=== PATIENT | female | born 1985 | race Caucasian/White ===

== ENCOUNTER 2020-11-09 00:56 | Emergency (ER) | payer BC ==
[2020-11-09] MEDS ORDERED: LIDOCAINE VISCOUS 2% 15 ML UDC MM STA (02:07)
[2020-11-09] MEDS ORDERED: MAG HYDROX/AL HYDROX/SIMETH 30 ML UDC PO STA (02:07)
[2020-11-09] MEDS ORDERED: MORPHINE 2 MG/ML CARPUJECT IVP STA ×2 (02:31→03:43)
[2020-11-09 02:40] LABS: ALBUMIN 4.4 g/dL (3.2-5.5); ALBUMIN/GLOBULIN RATIO 1.5 (1.0-2.2); BILIRUBIN,TOTAL 0.7 mg/dL (0.2-1.0); CALCIUM 9.1 mg/dL (8.5-10.3); CREATININE 0.7 mg/dL (0.4-1.0); TOTAL PROTEIN 7.3 g/dL (6.7-8.2)
[2020-11-09 02:42] LABS: BASOPHILS # (AUTO) 0.1 10^3/uL (0.0-0.1); BASOPHILS % (AUTO) 0.3 %; EOSINOPHILS # (AUTO) 0.2 10^3/uL (0.0-0.7); EOSINOPHILS % (AUTO) 1.2 %; HGB - HEMOGLOBIN 14.3 g/dL (12.0-16.0); LYMPHOCYTES # (AUTO) 2.6 10^3/uL (1.5-3.5); LYMPHOCYTES % (AUTO) 18.1 %; MEAN CORPUSCULAR HEMOGLOBIN 30.2 pg (27.0-31.0); MEAN CORPUSCULAR HGB CONC 33.2 g/dL (32.0-36.0); MEAN CORPUSCULAR VOLUME 91.1 fL (81.0-99.0); MONOCYTES # (AUTO) 0.7 10^3/uL (0.0-1.0); MONOCYTES % (AUTO) 4.5 %; NEUTROPHILS # (AUTO) 10.8 10^3/uL (1.5-6.6); NEUTROPHILS % (AUTO) 75.4 %; PLT - PLATELET COUNT 279 10^3/uL (130-450); RED BLOOD COUNT 4.73 10^6/uL (4.20-5.40); RED CELL DISTRIBUTION WIDTH 12.2 % (12.0-15.0); WHITE BLOOD COUNT 14.3 x10^3/uL (4.8-10.8)
--- NOTE | 2020-11-09 03:16 | ED Physician Documentation ---
PD HPI ABD PAIN - Stated complaint Stated Complaint: CHEST PX, UPPER BACK PX - Chief complaint Chief Complaint: Cardiac - History obtained from History obtained from: Patient - History of Present Illness Timing - onset: Enter time (22:00), Today Timing - details: Abrupt onset, Waxing and waning Pain level now: 6 Quality: Pain, Other (burning) Location: Epigastric Radiation: Lower back Improved by: Other (nothing) Worsened by: Other (no exacerbating factors) Associated symptoms: Nausea. No: Fever, Vomiting Similar symptoms before: Has not had sx before Recently seen: Not recently seen - Additional information Additional information: c/o epigastric burning pain since 10 PM, waxing and waning with radiation to back. nausea without vomiting. Has not had symptoms before. Review of Systems Constitutional: denies: Fever, Chills, Sweats Cardiac: reports: Reviewed and negative Respiratory: reports: Reviewed and negative GI: reports: Abdominal Pain, Nausea. denies: Vomiting, Constipation, Diarrhea : denies: Dysuria, Frequency PD PAST MEDICAL HISTORY - Past Medical History Past Medical History: Yes Endocrine/Autoimmune: HyPOthyroidism - Past Surgical History Past Surgical History: No - Present Medications Home Medications: Ambulatory Orders Medication Instructions Recorded Confirmed Ondansetron Odt [Zofran] 4 mg TL Q6H PRN #10 tablet 11/09/20 Oxycodone HCl/Acetaminophen 1 - 2 each PO Q6H PRN #14 tablet 11/09/20 [Percocet 5-325 mg Tablet] Thyroid,Pork [[place] Thyroid] 30 mg PO DAILY 11/09/20 11/09/20 - Allergies Allergies/Adverse Reactions: Allergies Allergy/AdvReac Type Severity Reaction Status Date / Time Penicillins Allergy Unknown Verified 11/09/20 01:10 - Living Situation Living Arrangement: reports: At home PD ED PE NORMAL - Vitals Vital signs reviewed: Yes - General General: Alert and oriented X 3, No acute distress, Well developed/nourished - Cardiac Cardiac: RRR, No murmur - Respiratory Respiratory: No respiratory distress, Clear bilaterally - Abdomen Abdomen: Soft, Non tender, Non distended - Back Back: No CVA TTP - Extremities Extremities: No edema Results - Vitals Vitals: Vital Signs - 24 hr 11/09/20 11/09/20 11/09/20 01:00 02:02 04:00 Temperature 36.7 C 36.6 C Heart Rate 82 81 84 Respiratory 16 26 H 27 H Rate Blood Pressure 151/89 H 127/74 140/78 H O2 Saturation 97 98 96 11/09/20 11/09/20 04:30 05:49 Temperature 36.6 C Heart Rate 75 87 Respiratory 20 20 Rate Blood Pressure 110/56 L 116/54 L O2 Saturation 96 95 Oxygen O2 Source Room air - Labs Labs: Laboratory Tests 11/09/20 11/09/20 11/09/20 02:20 02:20 02:20 WBC 14.3 H RBC 4.73 Hgb 14.3 Hct 43.1 MCV 91.1 MCH 30.2 MCHC 33.2 RDW 12.2 Plt Count 279 MPV 10.0 Neut # (Auto) 10.8 H Lymph # (Auto) 2.6 [place] # (Auto) 0.7 Eos # (Auto) 0.2 Baso # (Auto) 0.1 Absolute Nucleated RBC 0.00 Nucleated RBC % 0.0 Sodium 137 Potassium 3.9 Chloride 103 Carbon Dioxide 25 Anion Gap 9.0 BUN 16 Creatinine 0.7 Estimated GFR (MDRD) 94 Glucose 107 H Calcium 9.1 Total Bilirubin 0.7 AST 21 ALT 23 Alkaline Phosphatase 66 Troponin I High Sens 2.3 Total Protein 7.3 Albumin 4.4 Globulin 2.9 Albumin/Globulin Ratio 1.5 Lipase 18 L - Rads (name of study) RUQ US Radiology: Prelim report reviewed, See rad report PD MEDICAL DECISION MAKING - ED course Complexity details: reviewed results, re-evaluated patient, considered differential, d/w patient ED course: US demonstrates single gallstone, 1.9 cm and nonmobile. despite this finding, she has unremarkable blood work except 14.4 WBC (normal LFTs and lipase) and her pain was well controlled with IV toradol and small doses of morphine. plan is d/c , f/u with PMD, return if worse Departure - Departure Disposition: 01 Home, Self Care Clinical Impression: Biliary colic Condition: Good Instructions: ED Gallstone W Biliary Colic Follow-Up: Awais Hallman MD [Provider Admit Priv/Credential] - Prescriptions: Oxycodone HCl/Acetaminophen [Percocet 5-325 mg Tablet] 1 - 2 each PO Q6H PRN #14 tablet PRN Reason: pain Ondansetron Odt [Zofran] 4 mg TL Q6H PRN #10 tablet PRN Reason: Nausea / Vomiting Forms: Activity restrictions Discharge Date/Time: 11/09/20 06:23
[2020-11-09] MEDS ORDERED: KETOROLAC 30 MG/ML VIAL IVP STA (03:43)
[2020-11-09 05:50] VITALS: BP 116/54
--- NOTE | 2020-11-09 09:42 | Ultrasound Report ---
PROCEDURE: Abdomen Limited INDICATIONS: RUQ pain TECHNIQUE: Real-time scanning was performed of the abdominal and retroperitoneal organs, with image documentatio n. COMPARISON: None. FINDINGS: Liver: Liver is normal in size and homogeneous in echotexture. Gallbladder: Focus of increased echogenicity at the gallbladder neck. Wall thickness measures is so mewhat uneven ranging from approximately 2 to 3 mm. Biliary ducts: Intrahepatic bile ducts are non-dilated. Extrahepatic bile duct caliber measures 3.6 mm. Normal is 6-7 mm or less in diameter, or 10 mm or less post-cholecystectomy. Kidneys: Kidneys are normal in size and echotexture. Right kidney measures 12.6 cm long. No hydron ephrosis or nephrolithiasis. No solid masses. IVC: Intrahepatic inferior vena cava is patent. Miscellaneous: No free abdominal fluid. IMPRESSION: Cholelithiasis with borderline gallbladder wall thickening. Recommend correlation to potential cholec ystitis and CT as clinically indicated. Reviewed by: Anjali Friedman MD on 11/09/2020 9:40 AM PST Approved by: Anjali Friedman MD on 11/09/2020 9:40 AM PST Station ID: [id number]
== END 2020-11-09 06:23 | disposition home or self-care (01) ==
LOC: ED 00:56
DX: K80.20 Calculus of gallbladder without cholecystitis without obstruction (principal)
CPT/HCPCS: 36415; 76705; 80053; 83690; 84484; 85025; 93005; 96374; 96375; 96376; 99284; A9270

== ENCOUNTER 2021-01-05 13:36 | Outpatient (CLI) | payer OTHER | END 2021-01-05 13:37 | disposition home or self-care (01) | LOC: COV 13:36 | PROVIDERS: ATTEND Surgery | DX: Z01.812 Encounter for preprocedural laboratory examination (principal); K81.1 Chronic cholecystitis; Z20.822 Contact with and (suspected) exposure to COVID-19 ==

== ENCOUNTER 2021-01-09 06:28 | Day surgery (SDC) | payer BC, OTHER ==
[~2021-01-09 06:28] MED LIST: ceFAZolin 2 GM/50 ML 2 GM/50 ML BAG IV ONE
[2021-01-09] MEDS ORDERED: LACTATED RINGERS 1,000 ML IV ONE ×3 (06:32→09:32)
[2021-01-09] MEDS ORDERED: MIDAZOLAM 2 MG/2 ML VIAL ONE (07:05)
[2021-01-09] MEDS ORDERED: fentaNYL 100 MCG/2 ML VIAL ONE ×3 (07:06→09:00)
[2021-01-09] MEDS ORDERED: PROPOFOL 200 MG/20 ML VIAL IVP ONE (07:06)
[2021-01-09] MEDS ORDERED: LIDOCAINE-MPF 2% 5 ML VIAL ONE (07:07)
[2021-01-09 07:11] LABS: HCG UR QUAL NEGATIVE
[2021-01-09] MEDS ORDERED: HYDROmorphone 0.5 MG/0.5 ML SYRINGE IVP PRN (07:12)
[2021-01-09] MEDS ORDERED: ROCURONIUM 50 MG/5 ML VIAL ONE ×2 (07:12→08:01)
[2021-01-09] MEDS ORDERED: MORPHINE 2 MG/ML CARPUJECT IVP PRN (07:12)
[2021-01-09] MEDS ORDERED: ePHEDrine 50 MG/ML VIAL IVP PRN (07:12)
[2021-01-09] MEDS ORDERED: ONDANSETRON 4 MG/2 ML VIAL IVP PRN ×2 (07:12→09:14)
[2021-01-09] MEDS ORDERED: METOCLOPRAMIDE 10 MG/2 ML VIAL IVP PRN (07:12)
[2021-01-09] MEDS ORDERED: NALOXONE 0.4 MG/ML VIAL IVP PRN (07:12)
[2021-01-09] MEDS ORDERED: fentaNYL 100 MCG/2 ML VIAL IVP PRN (07:12)
[2021-01-09] MEDS ORDERED: ATROPINE ABBOJECT 1 MG/10 ML SYRINGE IVP PRN (07:12)
--- NOTE | 2021-01-09 07:20 | ANESTHESIA ---
Pre-Anesthesia VS, & Labs - Diagnosis chronic cholecytitis - Procedure laparosopic cholecystectomy Vital Signs: Temp Pulse Resp BP Pulse Ox 36.3 C L 98 16 149/95 H 96 01/09/21 06:35 01/09/21 06:35 01/09/21 06:35 01/09/21 06:35 01/09/21 06:35 Height: 5 ft 6 in Weight (kg): 121 kg Body Mass Index: 43.0 BMI Classification: Morbidly Obese - NPO >8 hours - Is Patient ?: No - Lab Results Lab results reviewed: Yes Home Medications and Allergies Active Medications Atropine Sulfate (Atropine Abboject 1 Mg/10 Ml Syringe) 0.5 mg IVP Q5M PRN PRN Reason: Bradycardia Stop: 01/10/21 07:12 Ephedrine Sulfate (Ephedrine 50 Mg/Ml Vial) 10 mg IVP Q5M PRN PRN Reason: HYPOTENSION Stop: 01/10/21 07:12 Fentanyl (Fentanyl 100 Mcg/2 Ml Vial) 25 - 50 mcg IVP Q5M PRN PRN Reason: BREAKTHROUGH PAIN (2nd Choice) Stop: 01/10/21 07:12 Hydromorphone HCl (Hydromorphone 0.5 Mg/0.5 Ml Syringe) 0.2 - 0.6 mg IVP Q5M PRN PRN Reason: PAIN (First Choice) Stop: 01/10/21 07:12 Lactated Ringer's (Lr) 1,000 mls @ 100 mls/hr IV .Q10H BULL Stop: 01/09/21 17:59 Metoclopramide HCl (Metoclopramide 10 Mg/2 Ml Vial) 10 mg IVP Q6HR PRN PRN Reason: N/V not relieved by Zofran Morphine Sulfate (Morphine 2 Mg/Ml Carpuject) 2 - 4 mg IVP Q5M PRN PRN Reason: PAIN (3rd Choice) Stop: 01/10/21 07:12 Naloxone HCl (Naloxone 0.4 Mg/Ml Vial) 0.1 mg IVP Q2M PRN PRN Reason: RESP RATE <8 Stop: 01/10/21 07:12 Ondansetron HCl (Ondansetron 4 Mg/2 Ml Vial) 4 mg IVP ONCE PRN PRN Reason: N/V (First Choice) Stop: 01/10/21 07:12 Thyroid,Pork [[place] Thyroid] 30 mg PO DAILY 11/09/20 Allergies/Adverse Reactions: Allergies Allergy/AdvReac Type Severity Reaction Status Date / Time Penicillins Allergy Unknown Verified 11/09/20 01:10 Anes History & Medical History - Anesthetic History Anesthesia Complications: reports: No previous complications Family history of Anesthesia Complications: Denies Family history of Malignant Hyperthermia: Denies - Medical History Cardiovascular: reports: None Pulmonary: reports: None Gastrointestinal: reports: Cholelithiasis Urinary: reports: None Neuro: reports: None Musculoskeletal: reports: None Endocrine/Autoimmune: reports: HyPOthyroidism Blood Disorders: reports: None Skin: reports: None Smoking Status: Never smoker Exam General: Alert, Oriented x3, Cooperative Dental: WNL Mouth Openin Fingerbreadth Neck Mobility: Normal Mallampati classification: II Thyromental Distance: 4-6 cm Respiratory: Lungs clear, Normal breath sounds, No respiratory distress Cardiovascular: Regular rate Neurological: Normal speech Mental/Cognitive Status: Alert/Oriented X3, Normal for patient Cognitive Status: Within normal limits Plan Anesthesia Type: General Consent for Procedure(s) Verified and Reviewed: Yes Code Status: Attempt Resuscitation ASA classification: 2-Mild systemic disease Is this case an emergency?: No
[2021-01-09] MEDS ORDERED: BUPIVACAINE 0.25% PF 30 ML VIAL ONE (07:22)
[2021-01-09] MEDS ORDERED: DEXAMETHASONE 4 MG/ML VIAL ONE (07:52)
[2021-01-09] MEDS ORDERED: ONDANSETRON 4 MG/2 ML VIAL ONE ×2 (07:52→09:41)
[2021-01-09] MEDS ORDERED: ACETAMINOPHEN 1,000 MG/100 ML 100 ML IV ONE (07:53)
[2021-01-09] MEDS ORDERED: LACTATED RINGERS 1,000 ML IV SCH (08:00)
[2021-01-09] MEDS ORDERED: BUPIVACAINE 0.25% PF 30 ML VIAL SUBQ ONE (08:06)
[2021-01-09] MEDS ORDERED: KETOROLAC 30 MG/ML VIAL ONE (08:37)
[2021-01-09] MEDS ORDERED: SUGAMMADEX 200 MG/2 ML VIAL IVP ONE (08:40)
--- NOTE | 2021-01-09 09:13 | OPERATIVE REPORT ---
Operative Report - General Procedure Date: 01/09/21 Planned Procedure: lap alexa Pre-Op Diagnosis: chronic cholecystitis Procedure Performed: lap alexa Post Op Diagnosis: chronic cholecystitis - Procedure Note Primary Surgeon: camila massey Anesthesia Technique: General ET tube, Local Estimated Blood Loss (mL): 0 Drain/Tube Type: Other (none) Findings: large obstructing stone Complications: none
[2021-01-09] MEDS ORDERED: HYDROcod/ACETAM 5/325 MG TABLET PO PRN (09:14)
[2021-01-09] MEDS ORDERED: HYDROcod/ACETAM 5/325 MG TABLET ONE (10:42)
--- NOTE | 2021-01-09 11:02 | OPERATIVE REPORT ---
DATE OF SERVICE: 01/09/2021 Physician: Awais Hallman MD PREOPERATIVE DIAGNOSIS: Chronic cholecystitis. POSTOPERATIVE DIAGNOSIS: Chronic cholecystitis. PROCEDURE PERFORMED: Laparoscopic cholecystectomy. SURGEON: Awais Hallman MD. ARTILLERY MAINTENANCE SUPERVISOR: None. ANESTHESIA 1. General endotracheal anesthesia. 2. Local anesthesia with Marcaine. COMPLICATIONS: None. SPECIMENS: Gallbladder. ESTIMATED BLOOD LOSS: Less than 10 mL. DRAINS: None. FINDINGS: A relatively healthy liver, only mild fatty change. She had a gallbladder 50% larger than normal with a large obstructing gallstone. Loose duodenal adhesions were present, these were carefully taken down. INDICATIONS FOR PROCEDURE: The patient is a 35-year-old with classic chronic cholecystitis-type symptoms. She has not had signs or symptoms of choledocholithiasis. She presents for laparoscopic cholecystectomy. Risks discussed, alternatives discussed, all questions answered, and consent obtained. DETAILS OF PROCEDURE: The patient was properly identified, brought to the operating room, and placed in the supine position. She voided prior to surgery. General endotracheal anesthesia was induced. Sequential compression devices were placed. She was prepped and draped in a sterile fashion and given preoperative antibiotics. Local anesthetic was given to the incision areas. Given her habitus, an incision was made approximately 6 cm cephalad of the umbilicus and 4 cm right lateral. Dissection proceeded down to the fascia. The fascia was lifted upwards and abdomen entered with the Veress needle. CO2 was insufflated to a pressure of 15. A 15 mm trocar was placed, followed by a 30- degree scope. There is no evidence of injury from Veress needle or trocar placement. Under direct vision, two 5 mm trocars were placed in the right upper quadrant, and an 11 mm trocar was placed in the epigastrium. Body of the gallbladder was retracted anterior. Loose omental and duodenal adhesions were carefully taken down with minimal use of cautery. Lateral attachments were partially taken down from the gallbladder, further mobilizing the gallbladder more anterior and away from the duodenum. The infundibulum and Tito's pouch was then retracted right lateral and caudad after milking the large gallstone upwards. A large bare cystic plate area or window was carefully developed with minimal use of cautery. She had both an anterior and posterior cystic artery branch. The cystic duct was quite thin and narrow. The cystic duct was clipped at the gallbladder and an additional 3 times proximal and sharply divided. The anterior and posterior cystic artery branches were separately clipped at the gallbladder 2 times proximal and sharply divided. Gallbladder was mobilized off from the bed of the liver without spillage of bile or stone material. The gallbladder was placed in an Endo Catch bag and brought out through the epigastrium. Large stone was broken into pieces to allow extraction through a relatively small incision site. Hemostasis was assured. There were no apparent complications. Fascia at the larger trocar sites was closed with [id number] 0 Vicryl sutures. Trocars were removed under direct vision and CO2 evacuated. Skin was closed with buried interrupted or running 4-0 Monocryl subcuticular suture. Steri-Strips and dressing were applied. She tolerated the procedure well. TD: 01/09/2021 10:11 tatiana GUTIÉRREZ
--- NOTE | 2021-01-09 11:07 | ANESTHESIA POST OP EVALUATION ---
Anesthesia Post Eval - Post Anesthesia Eval Vitals: Last Vital Signs Temp 36.6 C 01/09/21 09:39 Pulse 76 01/09/21 10:33 Resp 17 01/09/21 10:33 BP 133/89 H 01/09/21 10:33 Pulse Ox 96 01/09/21 10:33 CV Function Including HR & BP: positive: Stable Pain Control: positive: Satisfactory Nausea & Vomiting: positive: Negative Mental Status: positive: Baseline Respiratory Status: Airway Patent Hydration Status: Satisfactory Anesthesia Complications: positive: None
[2021-01-09 11:09] VITALS: BP 138/81
--- NOTE | 2021-01-10 12:49 | HISTORY & PHYSICAL EXAMINATION ---
Chief Complaint - Chief Complaint Chief Complaint: right upper abdominal pain History of Present Illness - History Obtained From Records Reviewed: yes History obtained from: patient Exam Limitations: none - History of Present Illness HPI Comment/Other: intermittent deep right upper abdominal pain going to the back for many weeks. History - Past Medical History Cardiovascular: reports: None Respiratory: reports: None Neuro: reports: None Endocrine/Autoimmune: reports: HyPOthyroidism GI: reports: Cholelithiasis DISPATCHER ELECTRIC POWER: reports: None : reports: None HEENT: reports: None Psych: reports: None Musculoskeletal: reports: None Derm: reports: None MRSA Hx?: No - POLST Patient has POLST: No Meds/Allgy - Home Medications Home Medications: Ambulatory Orders Medication Instructions Recorded Confirmed Thyroid,Pork [[place] Thyroid] 30 mg PO DAILY 11/09/20 01/09/21 HYDROcod/ACETAM 5/325 [[place] 5/325] 1 each PO Q6H PRN #20 tablet 01/09/21 - Allergies Allergies/Adverse Reactions: Allergies Allergy/AdvReac Type Severity Reaction Status Date / Time Penicillins Allergy Unknown Verified 11/09/20 01:10 Review of Systems - Constitutional Constitutional: reports: Fatigue (10 pt ros as above otherwise unremarkable) Exam - Vital Signs Reviewed Vital Signs: Yes - Physical Exam General Appearance: positive: No acute distress, Alert Eyes Bilateral: positive: EOMI, No scleral icterus ENT: positive: No signs of dehydration Neck: positive: No JVD Respiratory: positive: No respiratory distress, Breath sounds nml Cardiovascular: positive: Regular rate & rhythm Abdomen: positive: Non-tender, No distention Neurologic/Psychiatric: positive: Oriented x3 Conclusion/Plan - Problem List (1) Biliary colic Conclusion/Plan: She has developed chronic cholecystitis. No signs or symptoms of choledocholithiasis Plan lap alexa. parq held and consent obtained - Lab Results Lab results reviewed: Yes
== END 2021-01-09 06:29 | disposition home or self-care (01) ==
LOC: SDS 06:28
PROVIDERS: ATTEND Surgery
PROC: 0FT44ZZ Resection of Gallbladder, Percutaneous Endoscopic Approach (ICD-10-PCS; principal; 2021-01-09 07:30)
DX: K80.10 Calculus of gallbladder with chronic cholecystitis without obstruction (principal); E66.01 Morbid (severe) obesity due to excess calories; Z68.41 Body mass index [BMI] 40.0-44.9, adult; Z20.822 Contact with and (suspected) exposure to COVID-19; E03.9 Hypothyroidism, unspecified
CPT/HCPCS: 47562; 81025; A9270; J0131; J0690; J7120

== ENCOUNTER 2021-09-27 21:01 | Emergency (ER) | payer OTHER ==
--- NOTE | 2021-09-27 21:24 | ED Physician Documentation ---
History of Present Illness - Stated complaint Stated Complaint: SOA/HEART PALPITATIONS - Chief complaint Chief Complaint: Cardiac - History obtained from History obtained from: Patient - History of Present Illness Timing: Last night Pain level now: 0 Improved by: no ameliorating factors Worsened by: no exacerbating factors - Additonal information Additional information: c/o chest tightness since last night, constant and without apparent exacerbating or ameliorating factors. Denies h/o similar symptom. She also c/o dyspnea, although she describes a subacute course of similar dyspnea for which she was recently prescribed montelukast by her primary care provider. Patient is COVID vaccinated Review of Systems Constitutional: denies: Fever, Chills, Sweats Cardiac: reports: Chest pain / pressure (tightness), Pedal edema (bilateral, noticed earlier this evening (noticed that her socks were making indentations into the ankles)). denies: Palpitations, Calf pain Respiratory: reports: Dyspnea. denies: Cough, Hemoptysis, Wheezing GI: reports: Reviewed and negative : denies: Now [facility] PD PAST MEDICAL HISTORY - Past Medical History Cardiovascular: None Respiratory: None Neuro: None Endocrine/Autoimmune: HyPOthyroidism GI: Cholelithiasis RESIDENT CARE COORDINATOR: None : None HEENT: None Psych: None Musculoskeletal: None Derm: None - Past Surgical History Past Surgical History: No - Present Medications Home Medications: Ambulatory Orders Medication Instructions Recorded Confirmed Thyroid,Pork [[place] Thyroid] 30 mg PO DAILY 11/09/20 09/27/21 Montelukast Sodium 10 mg PO DAILY 09/27/21 09/27/21 - Allergies Allergies/Adverse Reactions: Allergies Allergy/AdvReac Type Severity Reaction Status Date / Time Penicillins Allergy Unknown Verified 09/27/21 21:05 - Social History Does the pt smoke?: No Smoking Status: Never smoker Does the pt drink ETOH?: Yes Does the pt have substance abuse?: No - Immunizations Immunizations are current?: No - POLST Patient has POLST: No PD ED PE NORMAL - Vitals Vital signs reviewed: Yes - General General: Alert and oriented X 3, No acute distress, Well developed/nourished - Cardiac Cardiac: RRR, No murmur, No gallop, No rub - Respiratory Respiratory: No respiratory distress, Clear bilaterally - Abdomen Abdomen: Soft, Non tender PD ED PE EXPANDED - Extremities Extremities: Pedal edema bilateral (trace pitting, ankles and distal lower legs) Results - Vitals Vitals: Vital Signs - 24 hr 09/27/21 09/27/21 09/27/21 21:05 21:32 22:26 Temperature 36.5 C Heart Rate 94 89 89 Respiratory 16 21 28 H Rate Blood Pressure 180/95 H 143/82 H 147/79 H O2 Saturation 99 99 98 09/27/21 23:33 Temperature 37.0 C Heart Rate 84 Respiratory 15 Rate Blood Pressure 139/90 H O2 Saturation 99 Oxygen O2 Source Room air - EKG (time done) No standard instances Rate: Rate (enter#) (94) Rhythm: NSR [place]: Normal Intervals: Normal [place] QRS: Normal Ischemia: Normal ST segments - Labs Labs: Laboratory Tests 09/27/21 09/27/21 09/27/21 21:20 21:20 21:20 WBC 11.4 H RBC 4.85 Hgb 14.6 Hct 43.7 MCV 90.1 MCH 30.1 MCHC 33.4 RDW 12.1 Plt Count 285 MPV 9.7 Neut # (Auto) 6.6 Lymph # (Auto) 3.6 H [place] # (Auto) 0.7 Eos # (Auto) 0.4 Baso # (Auto) 0.1 Absolute Nucleated RBC 0.00 Nucleated RBC % 0.0 Sodium 139 Potassium 3.4 L Chloride 101 Carbon Dioxide 28 Anion Gap 10.0 BUN 17 Creatinine 0.8 Estimated GFR (MDRD) 80 L Glucose 87 Calcium 9.3 Total Bilirubin 0.6 AST 24 ALT 37 Alkaline Phosphatase 82 Troponin I High Sens B-Natriuretic Peptide Total Protein 7.1 Albumin 3.9 Globulin 3.2 Albumin/Globulin Ratio 1.2 Lipase 35 TSH 3.51 Thyroxine (T4) 5.79 L 09/27/21 09/27/21 21:20 21:20 WBC RBC Hgb Hct MCV MCH MCHC RDW Plt Count MPV Neut # (Auto) Lymph # (Auto) [place] # (Auto) Eos # (Auto) Baso # (Auto) Absolute Nucleated RBC Nucleated RBC % Sodium Potassium Chloride Carbon Dioxide Anion Gap BUN Creatinine Estimated GFR (MDRD) Glucose Calcium Total Bilirubin AST ALT Alkaline Phosphatase Troponin I High Sens 2.8 B-Natriuretic Peptide 12 Total Protein Albumin Globulin Albumin/Globulin Ratio Lipase TSH Thyroxine (T4) - Rads (name of study) chest xray Radiology: Prelim report reviewed, See rad report PD MEDICAL DECISION MAKING - ED course Complexity details: reviewed results, re-evaluated patient, considered differential, d/w patient ED course: NAD with unremarkable vital signs, no concerning findings on CXR, EKG, blood tests (including troponin, BNP (performed due to mild BLE pitting edema)). PERC negative. Results reviewed with patient. Further emergent testing is not indicated at this time, but I encouraged her to return if worse and to follow up with her primary care provider for reevaluation Departure - Departure Disposition: 01 Home, Self Care Clinical Impression: Chest pain Qualifiers: Chest pain type: unspecified Qualified Code(s): R07.9 - Chest pain, unspecified Dyspnea Qualifiers: Dyspnea type: unspecified Qualified Code(s): R06.00 - Dyspnea, unspecified Condition: Good Instructions: ED Chest Pain Atypical Unkn Cause, ED Dyspnea Shortness of Breath Comments: The cause of your symptoms is unclear at this time; your blood tests and chest xray do not have any significant abnormalities. Follow up with your primary care provider for reevaluation Discharge Date/Time: 09/27/21 23:34
[2021-09-27 21:28] LABS: BASOPHILS # (AUTO) 0.1 10^3/uL (0.0-0.1); BASOPHILS % (AUTO) 0.6 %; EOSINOPHILS # (AUTO) 0.4 10^3/uL (0.0-0.7); EOSINOPHILS % (AUTO) 3.2 %; HCT - HEMATOCRIT 43.7 % (37.0-47.0); HGB - HEMOGLOBIN 14.6 g/dL (12.0-16.0); LYMPHOCYTES # (AUTO) 3.6 10^3/uL (1.5-3.5); LYMPHOCYTES % (AUTO) 31.9 %; MEAN CORPUSCULAR HEMOGLOBIN 30.1 pg (27.0-31.0); MEAN CORPUSCULAR HGB CONC 33.4 g/dL (32.0-36.0); MEAN CORPUSCULAR VOLUME 90.1 fL (81.0-99.0); MEAN PLATELET VOLUME 9.7 fL (7.9-10.8); MONOCYTES # (AUTO) 0.7 10^3/uL (0.0-1.0); NEUTROPHILS # (AUTO) 6.6 10^3/uL (1.5-6.6); NEUTROPHILS % (AUTO) 57.9 %; PLT - PLATELET COUNT 285 10^3/uL (130-450); RED BLOOD COUNT 4.85 10^6/uL (4.20-5.40); RED CELL DISTRIBUTION WIDTH 12.1 % (12.0-15.0); WHITE BLOOD COUNT 11.4 x10^3/uL (4.8-10.8)
[2021-09-27 21:43] LABS: ALBUMIN 3.9 g/dL (3.2-5.5); ALBUMIN/GLOBULIN RATIO 1.2 (1.0-2.2); BILIRUBIN,TOTAL 0.6 mg/dL (0.2-1.0); CALCIUM 9.3 mg/dL (8.5-10.3); CREATININE 0.8 mg/dL (0.4-1.0); POTASSIUM 3.4 mmol/L (3.5-5.0); TOTAL PROTEIN 7.1 g/dL (6.7-8.2)
[2021-09-27 21:52] LABS: T4 (THYROXINE) 5.79 ug/dL (6.09-12.23)
[2021-09-27 21:55] LABS: THYROID STIMULATING HORMONE 3.51 uIU/mL (0.34-5.60)
--- NOTE | 2021-09-27 22:04 | XRAY Report ---
PROCEDURE: Chest 2 View X-Ray INDICATIONS: dyspnea, chest tightness TECHNIQUE: 2 view(s) of the chest. COMPARISON: None. FINDINGS: Surgical changes and devices: None. Lungs and pleura: No pleural effusions or pneumothorax. Lungs are clear. Mediastinum: Mediastinal contours are normal. Heart size is normal. Bones and chest wall: No suspicious bony abnormalities. Soft tissues appear unremarkable. IMPRESSION: No acute cardiopulmonary pathology. Reviewed by: Jeromy Bang MD on 09/27/2021 10:03 PM [facility] [place] Approved by: Jeromy Bang MD on 09/27/2021 10:03 PM [facility] [place] Station ID: [id number]
[2021-09-27 23:35] VITALS: BP 139/90
== END 2021-09-27 23:34 | disposition home or self-care (01) ==
LOC: ED 21:01
DX: R07.89 Other chest pain (principal); R06.00 Dyspnea, unspecified
CPT/HCPCS: 36415; 80053; 83690; 83880; 84436; 84443; 84484; 85025; 93005; 99283; 99284